=== PATIENT | male | born 1965 | race Caucasian/White ===

== ENCOUNTER 2017-03-25 11:19 | Emergency (ER) | payer MEDICAID ==
[2017-03-25] MEDS ORDERED: oxyCOD/ACETAMIN 5 MG/325 MG TABLET PO STA (12:56)
[2017-03-25] MEDS ORDERED: IBUPROFEN 800 MG TABLET PO STA (12:56)
--- NOTE | 2017-03-25 13:08 | ED Physician Documentation ---
History of Present Illness - Stated complaint Stated Complaint: ARMS NUMB/SWOLLEN - Chief complaint Chief Complaint: Ext Problem - Additonal information Additional information: Patient is a 51-year-old male without any past medical history who presents with right forearm pain and swelling. This swelling is noted in the mid forearm area it is worse when he flexes his wrist. 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 He has not had any fever or chills. The upper part of the arm is not affected. There is no shortness of breath and he has no neck pain. He is not intravenous drug user. Review of systems: For pertinent positive and negatives in the review of systems please see the history of present illness, otherwise all other systems have been reviewed and are negative. Dragon disclaimer: Parts of this medical record were created using voice recognition technology. Because of the inherent limitations of this system, occasional same sounding word substitutions do occur and persist despite proofreading. Please read the document for context. Review of Systems Musculoskeletal: reports: Extremity pain, Extremity swelling PD PAST MEDICAL HISTORY - Past Medical History Past Medical History: No - Past Surgical History Past Surgical History: No - Present Medications Home Medications: Ambulatory Orders Medication Instructions Recorded Confirmed HYDROcod/ACETAM 5/325 [Vaughn 5/325] 1 - 2 ea PO Q6H PRN #10 tablet 03/25/17 Ibuprofen 600 mg PO TID PRN #14 tablet 03/25/17 - Allergies Allergies/Adverse Reactions: Allergies Allergy/AdvReac Type Severity Reaction Status Date / Time No Known Drug Allergies Allergy Verified 03/25/17 11:27 - Social History Does the pt smoke?: No Smoking Status: Never smoker Does the pt drink ETOH?: No Does the pt have substance abuse?: No - Immunizations Immunizations: TDAP current <10years - POLST Patient has POLST: No PD ED PE NORMAL - Vitals Vital signs reviewed: Yes - General General: Alert and oriented X 3, No acute distress, Well developed/nourished - HEENT HEENT: Atraumatic - Neck Neck: Supple, no meningeal sign, No JVD - Cardiac Cardiac: RRR, No murmur, No gallop, No rub - Respiratory Respiratory: No respiratory distress, Clear bilaterally - Abdomen Abdomen: Normal bowel sounds, Non tender, Non distended - Derm Derm: Normal color, Warm and dry - Extremities Extremities: No deformity, No tenderness to palpate - Neuro Neuro: Alert and oriented X 3, 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 There is also some pain over the flexor tendon as it passes through the retinaculum of the right wrist. The patient's history and exam are consistent with an overuse injury. There is no evidence of DVT. Quick ultrasound of the forearm shows no evidence of any loculated fluid collection. Plain films of the patient's forearm are normal. I have recommending small amount of pain medications anti- inflammatories and resting the arm for a few days. Disposition: To home Clinical impression: 1. Right forearm strain Departure - Departure Disposition: 01 Home, Self Care Clinical Impression: Muscle strain Condition: Good Instructions: ED Spasm Muscle, Tendonitis and Tenosynovitis Prescriptions: Ibuprofen 600 mg PO TID PRN #14 tablet PRN Reason: Pain HYDROcod/ACETAM 5/325 [Vaughn 5/325] 1 - 2 ea PO Q6H PRN #10 tablet PRN Reason: Pain
[2017-03-25] MEDS ORDERED: oxyCOD/ACETAMIN 5 MG/325 MG TABLET PO ONE (13:18)
[2017-03-25] MEDS ORDERED: IBUPROFEN 800 MG TABLET PO ONE (13:18)
--- NOTE | 2017-03-25 13:38 | XRAY Preliminary Report ---
Exam: XR Forearm RT IMPRESSION: Normal forearm radiography. [facility] SITE ID: [id number]
--- NOTE | 2017-03-25 13:41 | XRAY Report ---
EXAM: RIGHT FOREARM RADIOGRAPHY EXAM DATE: 03/25/2017 01:05 PM. CLINICAL HISTORY: Fore arm pain and tenderness. No known injury. COMPARISON: None. TECHNIQUE: 2 views. FINDINGS: Bones: Normal. No fractures or bone lesions. Joints: Normal. No effusions or subluxations in the visualized wrist or elbow joints. Soft Tissues: Normal. No soft tissue swelling. IMPRESSION: Normal forearm radiography. [facility] Referring Provider Line: [phone] SITE ID: [id number]
[2017-03-25 13:50] VITALS: BP 121/81
== END 2017-03-25 13:49 | disposition home or self-care (01) ==
LOC: ED 11:19
DX: S56.911A Strain of unspecified muscles, fascia and tendons at forearm level, right arm, initial encounter (principal); X50.3XXA Overexertion from repetitive movements, initial encounter; Y99.0 Civilian activity done for income or pay
CPT/HCPCS: 73090; 99283; A9270

== ENCOUNTER 2019-02-16 04:53 | Emergency (ER) | payer BC, MEDICAID ==
[2019-02-16 05:18] LABS: BASOPHILS # (AUTO) 0.1 10^3/uL (0.0-0.1); BASOPHILS % (AUTO) 0.5 %; EOSINOPHILS # (AUTO) 0.1 10^3/uL (0.0-0.7); EOSINOPHILS % (AUTO) 0.5 %; HGB - HEMOGLOBIN 14.5 g/dL (14.0-18.0); LYMPHOCYTES % (AUTO) 7.1 %; MEAN CORPUSCULAR HEMOGLOBIN 29.1 pg (27.0-31.0); MEAN CORPUSCULAR HGB CONC 31.7 g/dL (32.0-36.0); MEAN CORPUSCULAR VOLUME 91.8 fL (80.0-94.0); MEAN PLATELET VOLUME 9.8 fL (7.4-11.4); MONOCYTES # (AUTO) 0.9 10^3/uL (0.0-1.0); MONOCYTES % (AUTO) 6.8 %; NEUTROPHILS # (AUTO) 11.2 10^3/uL (1.5-6.6); NEUTROPHILS % (AUTO) 84.6 %; PLT - PLATELET COUNT 325 10^3/uL (130-450); RED BLOOD COUNT 4.99 10^6/uL (4.70-6.10); RED CELL DISTRIBUTION WIDTH 13.2 % (12.0-15.0); WHITE BLOOD COUNT 13.3 x10^3/uL (4.8-10.8)
[2019-02-16 05:30] LABS: ALBUMIN 3.8 g/dL (3.2-5.5); BILIRUBIN,TOTAL 0.8 mg/dL (0.2-1.0); CALCIUM 9.1 mg/dL (8.5-10.3); CREATININE 1.3 mg/dL (0.6-1.2); TOTAL PROTEIN 7.6 g/dL (6.7-8.2)
[2019-02-16] MEDS ORDERED: SODIUM CHLORIDE 0.9% 1,000 ML IV ONE (05:38)
--- NOTE | 2019-02-16 05:42 | ED Physician Documentation ---
History of Present Illness - Stated complaint Stated Complaint: AB PX - Chief complaint Chief Complaint: Abd Pain - History obtained from History obtained from: Patient, Family - History of Present Illness Timing: How many days ago (2) Pain level max: 5 Pain level now: 4 - Additonal information Additional information: 53-year-old male states that he is just not been feeling well for the past few days. This started 2 days ago. Had intermittent headaches, occasional joint pains and states that his stomach "did not feel right". He states occasionally has sharp pains. Denies any nausea or vomiting. No diarrhea. Possible constipation. No blood in the stool. No fevers. Has never had similar symptoms. Nothing makes it better or worse Review of Systems Constitutional: denies: Fever, Chills Nose: denies: Rhinorrhea / runny nose, Congestion Throat: denies: Sore throat Cardiac: denies: Chest pain / pressure, Palpitations, Calf pain Respiratory: denies: Dyspnea, Cough GI: denies: Nausea, Vomiting Skin: denies: Rash Musculoskeletal: denies: Neck pain, Back pain Neurologic: denies: Focal weakness, Numbness, Headache PD PAST MEDICAL HISTORY - Past Medical History Past Medical History: No - Past Surgical History Past Surgical History: No - Present Medications Home Medications: Ambulatory Orders Medication Instructions Recorded Confirmed Esomeprazole Magnesium [Nexium] 20 mg PO DAILY #30 capsule. 02/16/19 - Allergies Allergies/Adverse Reactions: Allergies Allergy/AdvReac Type Severity Reaction Status Date / Time No Known Drug Allergies Allergy Verified 02/16/19 05:06 - Social History Does the pt smoke?: No Smoking Status: Never smoker Does the pt drink ETOH?: No Does the pt have substance abuse?: No - Immunizations Immunizations: TDAP current <10years - POLST Patient has POLST: No PD ED PE NORMAL - Vitals Vital signs reviewed: Yes - General General: Alert and oriented X 3, No acute distress, Well developed/nourished - HEENT HEENT: PERRL, Moist mucous membranes - Neck Neck: Supple, no meningeal sign - Cardiac Cardiac: RRR, Strong equal pulses - Respiratory Respiratory: No respiratory distress, Clear bilaterally - Abdomen Abdomen: Normal bowel sounds, Soft, Non tender, Other (Mild distention, baseline for patient) - Back Back: No spinal TTP - Derm Derm: Warm and dry - Extremities Extremities: No edema - Neuro Neuro: Alert and oriented X 3 - Psych Psych: Normal mood, Normal affect Results - Vitals Vitals: Vital Signs - 24 hr 02/16/19 02/16/19 04:57 06:10 Temperature 36.6 C Heart Rate 95 77 Respiratory 16 17 Rate Blood Pressure 147/81 H 125/75 O2 Saturation 96 99 Oxygen O2 Source Room air - Labs Labs: Laboratory Tests 02/16/19 02/16/19 02/16/19 05:10 05:10 06:22 WBC 13.3 H RBC 4.99 Hgb 14.5 Hct 45.8 MCV 91.8 MCH 29.1 MCHC 31.7 L RDW 13.2 Plt Count 325 MPV 9.8 Neut # (Auto) 11.2 H Lymph # (Auto) 1.0 L Miller # (Auto) 0.9 Eos # (Auto) 0.1 Baso # (Auto) 0.1 Absolute Nucleated RBC 0.00 Nucleated RBC % 0.0 Sodium 139 Potassium 4.2 Chloride 103 Carbon Dioxide 25 Anion Gap 11.0 BUN 16 Creatinine 1.3 H Estimated GFR (MDRD) 58 L Glucose 140 H Calcium 9.1 Total Bilirubin 0.8 AST 16 ALT 23 Alkaline Phosphatase 47 Total Protein 7.6 Albumin 3.8 Globulin 3.8 Albumin/Globulin Ratio 1.0 Lipase 41 Urine Color YELLOW Urine Clarity CLEAR Urine pH 7.0 Ur Specific [place] <=1.005 Urine Protein NEGATIVE Urine Glucose (UA) NEGATIVE Urine Ketones NEGATIVE Urine Occult Blood TRACE-LYSE Urine Nitrite NEGATIVE Urine Bilirubin NEGATIVE Urine Urobilinogen 0.2 (NORMAL) Ur Leukocyte Esterase NEGATIVE Ur Microscopic Review NOT INDICATED Urine Culture Comments NOT INDICATED - Rads (name of study) CT abdomen pelvis Radiology: Prelim report reviewed, EMP read contemporaneously, See rad report (Fatty liver and mild splenomegaly. 2. Small hiatal hernia with possible wall thickening in the distal esophagus. Correlate for any symptoms of esophagitis. 3. Umbilical hernia containing fat. 4. Colonic diverticula without evidence of diverticulitis. 5. Suspect 2 mm nonobstructing right renal stone. ) PD MEDICAL DECISION MAKING - ED course Complexity details: reviewed results, re-evaluated patient (Abdomen is soft, nontender nondistended on serial exam.), considered differential, d/w patient, d/w family ED course: 53-year-old male with vague symptoms, unclear etiology. No acute findings on laboratory testing or CT scan to explain his symptoms. Will start on Nexium for GERD. Has an umbilical hernia but no bowel and not incarcerated. It is fat- containing only. Also has a fatty liver. Recommend that he follow-up with his doctor for further evaluation and care. Patient and family counseled regarding signs and symptoms for which I believe and urgent re-evaluation would be necessary. Patient with good understanding of and agreement to plan and is comfortable going home at this time This document was made in part using voice recognition software. While efforts are made to proofread this document, sound alike and grammatical errors may occur. Departure - Departure Disposition: Home, Self Care Clinical Impression: GERD (gastroesophageal reflux disease) Qualifiers: Esophagitis presence: with esophagitis Qualified Code(s): K21.0 - Gastro- esophageal reflux disease with esophagitis Umbilical hernia Qualifiers: Obstruction and gangrene presence: without obstruction or gangrene Qualified Code(s): K42.9 - Umbilical hernia without obstruction or gangrene Condition: Good Instructions: ED GERD Follow-Up: your,doctor in 1 week [Other] Prescriptions: Esomeprazole Magnesium [Nexium] 20 mg PO DAILY #30 capsule.dr Comments: Return if you worsen. We will start you on Nexium and see if this improves your symptoms. The cause of your symptoms is unclear. Follow-up with your doctor for further care. Your CT results are as follows: Fatty liver and mild splenomegaly. 2. Small hiatal hernia with possible wall thickening in the distal esophagus. Correlate for any symptoms of esophagitis. 3. Umbilical hernia containing fat. 4. Colonic diverticula without evidence of diverticulitis. 5. Suspect 2 mm nonobstructing right renal stone.
[2019-02-16] MEDS ORDERED: IOVERSOL 320 100 ML VIAL IVP ONE ×2 (05:44→05:56)
[2019-02-16] MEDS ORDERED: KETOROLAC 30 MG/ML VIAL IVP STA (06:05)
--- NOTE | 2019-02-16 06:14 | CT Report ---
Reason: abd pain, diffuse Procedure Date: 02/16/2019 Accession Number: [id number] / [id number] Procedure: CT - Abdomen/Pelvis W CPT Code: FULL RESULT: EXAM: CT ABDOMEN AND PELVIS EXAM DATE: 02/16/2019 05:58 AM. CLINICAL HISTORY: Abdominal pain. COMPARISONS: None. TECHNIQUE: Routine helical CT imaging was performed through the abdomen and pelvis. IV contrast: OPTI 320 100ML. Enteric contrast: No. Reconstructions: Coronal and sagittal. In accordance with CT protocol optimization, one or more of the following dose reduction techniques were utilized for this exam: automated exposure control, adjustment of mA and/or KV based on patient size, or use of iterative reconstructive technique. FINDINGS: Lung Bases: No focal consolidation seen. Small hiatal hernia. Possible wall thickening in the distal esophagus. Paraesophageal lymph node measuring 0.9 cm. Liver: Fatty infiltration. Gallbladder/Bile Ducts: Unremarkable. Spleen: Mildly enlarged at 13 cm. Pancreas: Normal. Adrenal Glands: Normal. Kidneys: Probable 2 mm nonobstructing right renal stone. No masses or hydronephrosis. Peritoneal Cavity/Bowel: Umbilical hernia containing fat. No bowel obstruction seen. No free air or free fluid. Colonic diverticula. No diverticulitis identified. No lymphadenopathy seen. Appendix appears normal. Pelvic Organs: Normal. The bladder and visualized pelvic organs are within normal limits. Vasculature: No aneurysms or other significant abnormality. Bones: No significant abnormality. Other: None. IMPRESSION: 1. Fatty liver and mild splenomegaly. 2. Small hiatal hernia with possible wall thickening in the distal esophagus. Correlate for any symptoms of esophagitis. 3. Umbilical hernia containing fat. 4. Colonic diverticula without evidence of diverticulitis. 5. Suspect 2 mm nonobstructing right renal stone. [facility]
[2019-02-16 06:33] LABS: BILIRUBIN,URINE NEGATIVE (NEGATIVE); CLARITY,URINE CLEAR (CLEAR); GLUCOSE, URINE (UA) NEGATIVE (NEGATIVE); KETONES,URINE (UA) NEGATIVE (NEGATIVE); LEUKOCYTE ESTERASE, URINE NEGATIVE (NEGATIVE); NITRITE,URINE NEGATIVE (NEGATIVE); OCCULT BLOOD,URINE TRACE-LYSE (NEGATIVE); PROTEIN,URINE NEGATIVE (NEGATIVE); UROBILINOGEN,URINE 0.2 (NORMAL) E.U./dL (NORMAL)
[2019-02-16 06:54] VITALS: BP 127/86
== END 2019-02-16 06:54 | disposition home or self-care (01) ==
LOC: ED 04:53
DX: K21.0 Gastro-esophageal reflux disease with esophagitis (principal); K42.9 Umbilical hernia without obstruction or gangrene
CPT/HCPCS: 36415; 74177; 80053; 81003; 83690; 85025; 96360; 99283; 99284; Q9967; 81001; 87086

== ENCOUNTER 2021-05-12 04:39 | Emergency (ER) | payer MEDICAID ==
[2021-05-12 04:48] VITALS: BP 177/88
[2021-05-12] MEDS ORDERED: ACETAMINOPHEN 325 MG TABLET PO STA (04:59)
--- NOTE | 2021-05-12 05:01 | ED Physician Documentation ---
History of Present Illness - Stated complaint Stated Complaint: TOOTH/MOUTH PX - Chief complaint Chief Complaint: Heent - History obtained from History obtained from: Patient - Additonal information Additional information: 85-year-old man with presents with right lower since yesterday, waking him from sleep. Denies fever, difficulty with secretions, change in quality of voice, trismus. Review of Systems Throat: reports: Dental pain / toothache PD PAST MEDICAL HISTORY - Past Medical History Past Medical History: No - Past Surgical History Past Surgical History: No - Present Medications Home Medications: Ambulatory Orders Medication Instructions Recorded Confirmed Amox/Clav 875/125 [Augmentin 1 tablet PO Q12H 7 Days #14 tablet 05/12/21 875/125 Tab] - Allergies Allergies/Adverse Reactions: Allergies Allergy/AdvReac Type Severity Reaction Status Date / Time No Known Drug Allergies Allergy Verified 05/12/21 04:48 - Social History Does the pt smoke?: Yes Smoking Status: Current every day smoker Does the pt drink ETOH?: No Does the pt have substance abuse?: No - Immunizations Immunizations are current?: Yes Immunizations: TDAP current <10years - POLST Patient has POLST: No PD ED PE NORMAL - Vitals Vital signs reviewed: Yes - General General: Alert and oriented X 3, No acute distress, Well developed/nourished - HEENT HEENT: Atraumatic, PERRL, EOMI, Other (Extremely poor dentition. Multiple avulsed teeth. Right lower periodontal swelling consistent with dental infection.) - Neck Neck: Other (normal swallow. tolerating secretions) - Derm Derm: Normal color, Warm and dry Results - Vitals Vitals: Vital Signs - 24 hr 05/12/21 04:40 Temperature 36.5 C Heart Rate 92 Respiratory 16 Rate Blood Pressure 177/88 H O2 Saturation 99 Oxygen O2 Source Room air PD MEDICAL DECISION MAKING - ED course ED course: 55-year-old man presents with chronic poor dentition and dental caries that have developed an infection. Augmentin prescribed. Return precautions given. Plan to follow-up with dental. Departure - Departure Disposition: 01 Home, Self Care Clinical Impression: Dental infection, Pain due to dental caries Condition: Good Instructions: ED Tooth Pain Prescriptions: Amox/Clav 875/125 [Augmentin 875/125 Tab] 1 tablet PO Q12H 7 Days #14 tablet Comments: You were seen in the emergency department for dental infection. Take your antibiotics as prescribed and make an appointment to see a dentist as soon as possible. Return if you have new or worsening symptoms or other concerns.
== END 2021-05-12 05:07 | disposition home or self-care (01) ==
LOC: ED 04:39
DX: K04.7 Periapical abscess without sinus (principal); K02.9 Dental caries, unspecified; F17.200 Nicotine dependence, unspecified, uncomplicated
CPT/HCPCS: 99282; 99283; A9270